=== PATIENT | female | born 1955 | race Caucasian/White ===

== ENCOUNTER 2022-12-02 15:36 | Emergency (ER) | payer MEDICARE, MEDICAID ==
[~2022-12-02] VITALS: Ht 167.6 cm; Wt 61.4 kg
[2022-12-02 15:45] VITALS: BP 144/76; PULSE 94; RESP 18; TEMP 98.4; O2SAT 99
== END 2022-12-02 18:39 | disposition home or self-care (01) ==
LOC: ER 15:37
DX: R21 Rash and other nonspecific skin eruption (principal); F17.200 Nicotine dependence, unspecified, uncomplicated
CPT/HCPCS: 99281